=== PATIENT | male | born 1945 | race Caucasian/White ===

== ENCOUNTER 2020-05-17 01:11 | Emergency (ER) | payer MEDICARE, MEDICAID ==
[~2020-05-17] VITALS: Ht 175.3 cm; Wt 81.6 kg
--- NOTE | 2020-05-17 02:39 | NUR ---
SPOKE TO MADHURI FROM [facility] AWARE PT TO BE TRANSFERED BACK TO [facility]
--- NOTE | 2020-05-17 02:42 | NUR ---
SPOKE TO HUA FROM [facility], BLS ETA [id number]
--- NOTE | 2020-05-17 04:01 | NUR ---
PT ASLEEPL VSS.
--- NOTE | 2020-05-17 05:42 | NUR ---
PT REMAINS ASLEEP, VSS.
[2020-05-17 07:16] VITALS: BP 122/75
--- NOTE | 2020-05-17 07:16 | NUR ---
Patient discharged to home in stable condition. Written and verbal after care instructions given. Patient verbalizes understanding of instruction. Pt transfered back to facility.
--- NOTE | 2020-05-17 07:16 | NUR ---
REPORT GIVEN TO LUIS VINES. PT TRANSFERED BACK TO FACILITY.
== END 2020-05-17 07:21 | disposition home or self-care (01) ==
LOC: EDSEX 01:13 → ER 01:13
DX: S60.222A Contusion of left hand, initial encounter (principal); S60.221A Contusion of right hand, initial encounter; S00.81XA Abrasion of other part of head, initial encounter; S80.212A Abrasion, left knee, initial encounter; S80.211A Abrasion, right knee, initial encounter; I10 Essential (primary) hypertension; E78.5 Hyperlipidemia, unspecified; E11.9 Type 2 diabetes mellitus without complications; F03.90 Unspecified dementia, unspecified severity, without behavioral disturbance, psychotic disturbance, mood disturbance, and anxiety; W18.39XA Other fall on same level, initial encounter; Y93.89 Activity, other specified; Y92.89 Other specified places as the place of occurrence of the external cause; Y99.8 Other external cause status
CPT/HCPCS: 70450-TC; 71045-TC; 72125-TC; 73521; 73564-TC